=== PATIENT | female | born 1950 | race Caucasian/White ===

== ENCOUNTER 2018-09-17 09:17 | Inpatient (IN) | payer MEDICARE ==
[~2018-09-17] VITALS: Ht 154.9 cm; Wt 57.6 kg
[~2018-09-17 09:17] MED LIST: ACID1TAB7 PO; GABA-826 PO; INSU100V8 SQ-INSULIN; LEVO750T26 PO; MAGN400T26 PO; MEGE400O2 PO; METF-162; METO10TA82 PO; METO25TA35 PO; METR500T PO; MORP15TA PO; MORP30TA81 PO; NICO-486 TD; OMEP-110 PO; OMEP10CA4 PO; ONDA4TAB13 SL; PANT40TA5 PO; POLY17PO5 PO; SUCR1ORA11 PO
[2018-09-17] MEDS ORDERED: SODIUM CHLORIDE FLUSH 10ML SYR IVF ONE (09:30)
--- NOTE | 2018-09-17 09:30 | NUR ---
Pt reports 3 wks of diffuse low ABD pain, 2 days of constipation & gen. malaise. Per granddaughter whom she lives with, pt is confused. Pt is currently A&O x4, 810 pain, febrile. Has been seen by ERP & medical workup ordered.
[2018-09-17 09:59] LABS: MEAN CORPUSCULAR HEMOGLOBIN 23.3 pg (27.0-34.8); MEAN CORPUSCULAR HGB CONC 30.7 g/dL (32.4-35.8); MEAN CORPUSCULAR VOLUME 75.9 fL (80-100); PLATELET COUNT 510 x10^3/uL (130-400); RED BLOOD COUNT 5.19 x10^6/uL (3.82-5.3); RED CELL DISTRIBUTION WIDTH 21.1 % (9.6-15.2)
[2018-09-17 10:08] LABS: ALANINE AMINOTRANSFERASE 12 U/L (12-78); ALBUMIN 2.6 g/dL (3.4-5.0); ANION GAP 12 mmol/L (5-15); CALCIUM 8.4 mg/dL (8.5-10.1); CHLORIDE 95 mmol/L (98-107); CREATININE 0.74 mg/dL (0.55-1.02)
[2018-09-17 10:10] LABS: ALKALINE PHOSPHATASE 146 U/L (45-117); BILIRUBIN,TOTAL 0.7 mg/dL (0.2-1.0); TOTAL PROTEIN 6.5 g/dL (6.4-8.2)
--- NOTE | 2018-09-17 10:20 | NUR ---
Labs drawn & sent. Cath UA obtained & sent. Multiple IV attempts w/out success.
[2018-09-17 10:27] LABS: BASOPHILS # (AUTO) 0.05 x10^3/uL (0-0.1); BASOPHILS % (AUTO) 1 % (0-1); EOSINOPHILS # (AUTO) 0.06 x10^3/uL (0-0.4); EOSINOPHILS % (AUTO) 1 % (1-7); LYMPHOCYTES # (AUTO) 1.04 x10^3/uL (1-3.4); LYMPHOCYTES % (AUTO) 15 % (22-44); MD SCAN; MONOCYTES % (AUTO) 3 % (2-9); NEUTROPHILS # (AUTO) 5.74 x10^3/uL (1.8-6.8); NEUTROPHILS % (AUTO) 81 % (42-75)
--- NOTE | 2018-09-17 10:52 | NUR ---
delay in CT due to inability to gain IV access after 7 attempts. US IV placed & CT called to inform that pt is ready.
[2018-09-17] MEDS ORDERED: ONDANSETRON 2MG/ML, 2ML IVPush ONE (11:00)
[2018-09-17] MEDS ORDERED: MORPHINE SULFATE 4 MG/ML, 1ML IVPush PRN (11:00)
[2018-09-17 11:07] LABS: MICROSCOPIC INDICATED
[2018-09-17 11:11] LABS: CULTURE INDICATED? YES
[2018-09-17] MEDS ORDERED: MORPHINE SULFATE 4 MG/ML, 1ML ONE (11:11)
[2018-09-17] MEDS ORDERED: ONDANSETRON 2MG/ML, 2ML ONE (11:11)
[2018-09-17] MEDS ORDERED: OMNIPAQUE 350 MG/ML, 100ML BOTTLE ONE (11:19)
--- NOTE | 2018-09-17 11:27 | NUR ---
Back from CT. Medicated for 8/10 ABD pain. Placed on continuous pulse oximetry.
[2018-09-17] MEDS ORDERED: METRONIDAZOLE PMX 500MG/100ML 100 ML IV ONE (12:00)
[2018-09-17] MEDS ORDERED: CEFOTETAN PMX 1GM/50ML 50 ML IV ONE (12:00)
[2018-09-17] MEDS ORDERED: CEFOTETAN PMX 1GM/50ML 50 ML ONE (12:12)
[2018-09-17] MEDS ORDERED: METRONIDAZOLE PMX 500MG/100ML 100 ML ONE (12:12)
--- NOTE | 2018-09-17 12:18 | NUR ---
Spoke w/ pharmacist, ok to give abx w/ pcn/sulfa allergies. 1st abx started.
[2018-09-17 13:26] VITALS: BP 126/49
[2018-09-17] MEDS ORDERED: CEFTRIAXONE PMX 1GM/50ML 50 ML IV SCH ×2 (14:00→15:03)
[2018-09-17] MEDS ORDERED: ACETAMINOPHEN 325 MG TABLET PO PRN ×2 (14:00→15:06)
[2018-09-17] MEDS ORDERED: ONDANSETRON ODT 4 MG PO PRN (15:30)
[2018-09-17] MEDS ORDERED: OXYcodone 5 MG/5 ML ORAL.SOL UDC ONE (15:46)
[2018-09-17] MEDS ORDERED: OXYcodone 5 MG/5 ML ORAL.SOL UDC PO ONE (16:00)
[2018-09-17] MEDS: NS + 20MEQ KCL 1,000 ML IV SCH (16:07)
[2018-09-17] MEDS: HEPARIN 5,000 UNITS/ML, 1ML SQ SCH ×2 (16:09→21:38)
[2018-09-17] MEDS: PANTOPRAZOLE 40 MG IV IVPush SCH (16:09)
[2018-09-17] MEDS: LACTOBACILLUS CHEW TABLET PO SCH ×2 (16:22→21:35)
[2018-09-17] MEDS: SUCRALFATE 1 GM TABLET PO SCH ×2 (16:24→21:35)
[2018-09-17] MEDS ORDERED: OMEPRAZOLE 20 MG CAPSULE.DR PO SCH (16:30)
[2018-09-17] MEDS: INSULIN LISPRO 100 UNITS/ML, PEN SQ-INSULIN SCH ×2 (17:26→21:37)
[2018-09-17] MEDS: CEFTRIAXONE PMX 1GM/50ML 50 ML IV SCH (17:27)
[2018-09-17] MEDS ORDERED: ONDANSETRON 2MG/ML, 2ML IVPush PRN (17:30)
[2018-09-17] MEDS ORDERED: OXYC5TAB2 PO (18:05)
[2018-09-17] MEDS ORDERED: METO5TAB2 PO (18:05)
[2018-09-17] MEDS ORDERED: APIX5TAB PO (18:05)
[2018-09-17] MEDS ORDERED: METO10TA82 PO (18:05)
[2018-09-17] MEDS ORDERED: INSU100I34 IM (18:05)
[2018-09-17] MEDS: METRONIDAZOLE PMX 500MG/100ML 100 ML IV SCH (18:23)
[2018-09-17 18:33] VITALS: BP 116/57
[2018-09-17] MEDS ORDERED: INSULIN GLARGINE 100 UNITS/ML, PEN SQ-INSULIN SCH (21:00)
[2018-09-18] MEDS: METRONIDAZOLE PMX 500MG/100ML 100 ML IV SCH ×4 (00:31→18:23)
[2018-09-18 01:34] VITALS: BP 133/71
[2018-09-18] MEDS: PANTOPRAZOLE 40 MG IV IVPush SCH ×2 (02:49→16:31)
[2018-09-18] MEDS: NS + 20MEQ KCL 1,000 ML IV SCH ×3 (04:15→16:55)
[2018-09-18] MEDS: HEPARIN 5,000 UNITS/ML, 1ML SQ SCH (06:26)
[2018-09-18] MEDS: SUCRALFATE 1 GM TABLET PO SCH ×4 (06:27→22:36)
[2018-09-18 06:29] LABS: ALBUMIN 2.2 g/dL (3.4-5.0); ANION GAP 10 mmol/L (5-15); CALCIUM 7.8 mg/dL (8.5-10.1); CHLORIDE 102 mmol/L (98-107)
[2018-09-18 06:32] LABS: ALANINE AMINOTRANSFERASE 7 U/L (12-78); ALKALINE PHOSPHATASE 127 U/L (45-117); BILIRUBIN,TOTAL 0.4 mg/dL (0.2-1.0); TOTAL PROTEIN 5.4 g/dL (6.4-8.2)
[2018-09-18 06:33] LABS: BASOPHILS # (AUTO) 0.06 x10^3/uL (0-0.1); BASOPHILS % (AUTO) 1 % (0-1); EOSINOPHILS # (AUTO) 0.13 x10^3/uL (0-0.4); EOSINOPHILS % (AUTO) 2 % (1-7); LYMPHOCYTES # (AUTO) 1.17 x10^3/uL (1-3.4); LYMPHOCYTES % (AUTO) 15 % (22-44); MD NO; MEAN CORPUSCULAR HEMOGLOBIN 23.8 pg (27.0-34.8); MEAN CORPUSCULAR HGB CONC 31.2 g/dL (32.4-35.8); MEAN CORPUSCULAR VOLUME 76.2 fL (80-100); MEAN PLATELET VOLUME 8.4 fL (7.4-10.4); MONOCYTES # (AUTO) 0.32 x10^3/uL (0.2-0.8); MONOCYTES % (AUTO) 4 % (2-9); NEUTROPHILS # (AUTO) 5.99 x10^3/uL (1.8-6.8); NEUTROPHILS % (AUTO) 78 % (42-75); PLATELET COUNT 482 x10^3/uL (130-400); RED BLOOD COUNT 4.36 x10^6/uL (3.82-5.3); RED CELL DISTRIBUTION WIDTH 20.7 % (9.6-15.2)
[2018-09-18] MEDS: INSULIN LISPRO 100 UNITS/ML, PEN SQ-INSULIN SCH ×4 (07:11→22:36)
[2018-09-18 07:32] VITALS: BP 105/50
[2018-09-18] MEDS: INSULIN GLARGINE 100 UNITS/ML, PEN SQ-INSULIN SCH ×2 (08:29→22:51)
[2018-09-18] MEDS: LACTOBACILLUS CHEW TABLET PO SCH ×3 (08:29→22:36)
[2018-09-18] MEDS ORDERED: OXYcodone 5 MG/5 ML ORAL.SOL UDC ONE (09:33)
[2018-09-18] MEDS: OXYcodone 5 MG/5 ML ORAL.SOL UDC PO PRN ×2 (09:36→16:56)
[2018-09-18] MEDS: APIXABAN 5 MG TABLET PO SCH ×2 (11:35→22:36)
[2018-09-18] MEDS: METOCLOPRAMIDE 10MG TABLET PO SCH ×3 (11:35→22:36)
[2018-09-18 12:31] VITALS: BP 124/62
[2018-09-18] MEDS ORDERED: POTASSIUM CHLORIDE 20 MEQ TAB.ER.PRT PO ONE (13:30)
[2018-09-18] MEDS: CEFTRIAXONE PMX 1GM/50ML 50 ML IV SCH (16:54)
[2018-09-18] MEDS: METOPROLOL TARTRATE 25 MG TABLET PO SCH (18:00)
[2018-09-18 18:47] VITALS: BP 104/52
[2018-09-19] MEDS: METRONIDAZOLE PMX 500MG/100ML 100 ML IV SCH ×4 (00:29→18:14)
[2018-09-19 02:15] VITALS: BP 97/51
[2018-09-19] MEDS: PANTOPRAZOLE 40 MG IV IVPush SCH ×2 (03:12→15:00)
[2018-09-19 03:26] LABS: CLOSTRIDIUM DIFFICILE ANTIGEN NEGATIVE; CLOSTRIDIUM DIFFICILE TOXIN NEGATIVE (Negative)
[2018-09-19 05:33] LABS: MEAN CORPUSCULAR HEMOGLOBIN 24.1 pg (27.0-34.8); MEAN CORPUSCULAR HGB CONC 31.9 g/dL (32.4-35.8); MEAN CORPUSCULAR VOLUME 75.6 fL (80-100); MEAN PLATELET VOLUME 8.5 fL (7.4-10.4); PLATELET COUNT 493 x10^3/uL (130-400); RED BLOOD COUNT 4.35 x10^6/uL (3.82-5.3); RED CELL DISTRIBUTION WIDTH 21.1 % (9.6-15.2)
[2018-09-19 05:43] LABS: ALBUMIN 2.2 g/dL (3.4-5.0); ANION GAP 5 mmol/L (5-15); CALCIUM 7.7 mg/dL (8.5-10.1); CHLORIDE 107 mmol/L (98-107)
[2018-09-19 05:46] LABS: ALANINE AMINOTRANSFERASE 9 U/L (12-78); ALKALINE PHOSPHATASE 115 U/L (45-117); BILIRUBIN,TOTAL 0.4 mg/dL (0.2-1.0); CREATININE 0.59 mg/dL (0.55-1.02); TOTAL PROTEIN 5.5 g/dL (6.4-8.2)
[2018-09-19 06:20] LABS: MD YES
[2018-09-19] MEDS: NS + 20MEQ KCL 1,000 ML IV SCH ×2 (06:21→16:00)
[2018-09-19] MEDS: METOCLOPRAMIDE 10MG TABLET PO SCH ×4 (06:22→20:23)
[2018-09-19] MEDS: METOPROLOL TARTRATE 25 MG TABLET PO SCH ×2 (06:22→18:00)
[2018-09-19 06:23] LABS: EOS#(MANUAL) 0.19 x10^3/uL (0.0-0.4); EOS% (MANUAL) 4 % (1-7); LYMPH#(MANUAL) 1.69 x10^3/uL (1-3.4); LYMPHS% (MANUAL) 36 % (22-44); MONOS#(MANUAL) 0.33 x10^3/uL (0.3-2.7); MONOS% (MANUAL) 7 % (2-9); SEG#(MANUAL) 2.49 x10^3/uL (1.8-6.8); SEGS% (MANUAL) 53 % (42-75)
[2018-09-19 06:24] LABS: ANISOCYTOSIS 2+; ECHINOCYTES 1+; HYPOCHROMIA 1+; MICROCYTOSIS 1+; OVALOCYTES 1+
[2018-09-19 06:26] VITALS: BP 113/61
[2018-09-19 06:26] LABS: <PLATELET ESTIMATE> INCREASED; <PLT MORPHOLOGY> NORMAL PLT MORPH; ACANTHOCYTES 1+
[2018-09-19] MEDS: SUCRALFATE 1 GM TABLET PO SCH ×4 (06:33→20:22)
[2018-09-19 06:55] VITALS: BP 134/79
[2018-09-19] MEDS: INSULIN LISPRO 100 UNITS/ML, PEN SQ-INSULIN SCH ×4 (07:43→20:24)
[2018-09-19] MEDS: OXYcodone 5 MG/5 ML ORAL.SOL UDC PO PRN ×2 (07:43→18:12)
[2018-09-19] MEDS: POTASSIUM CHLORIDE 20 MEQ TAB.ER.PRT PO SCH ×2 (07:43→16:39)
[2018-09-19] MEDS: IRON SUCROSE COMPLEX 100MG/5ML IV SCH (09:00)
[2018-09-19] MEDS: LACTOBACILLUS CHEW TABLET PO SCH ×3 (09:40→20:22)
[2018-09-19] MEDS: INSULIN GLARGINE 100 UNITS/ML, PEN SQ-INSULIN SCH ×2 (09:40→21:03)
[2018-09-19] MEDS: APIXABAN 5 MG TABLET PO SCH ×2 (09:40→20:23)
[2018-09-19 12:16] VITALS: BP 143/93
[2018-09-19] MEDS: ONDANSETRON ODT 4 MG PO PRN ×2 (13:59→18:12)
[2018-09-19] MEDS: CEFTRIAXONE PMX 1GM/50ML 50 ML IV SCH (15:30)
[2018-09-19] MEDS ORDERED: PROMETHAZINE 12.5 MG SUPP PR PRN (18:00)
[2018-09-19 18:10] VITALS: BP 131/72
[2018-09-19 20:00] VITALS: BP 152/75
[2018-09-20] MEDS: METRONIDAZOLE PMX 500MG/100ML 100 ML IV SCH ×4 (00:01→19:29)
[2018-09-20 01:06] VITALS: BP 138/77
[2018-09-20] MEDS: NS + 20MEQ KCL 1,000 ML IV SCH ×2 (02:00→12:30)
[2018-09-20] MEDS: PANTOPRAZOLE 40 MG IV IVPush SCH ×2 (03:39→15:00)
[2018-09-20] MEDS: METOCLOPRAMIDE 10MG TABLET PO SCH ×4 (06:10→22:09)
[2018-09-20] MEDS: METOPROLOL TARTRATE 25 MG TABLET PO SCH ×2 (06:10→16:48)
[2018-09-20] MEDS: SUCRALFATE 1 GM TABLET PO SCH ×4 (06:10→22:09)
[2018-09-20] MEDS: INSULIN LISPRO 100 UNITS/ML, PEN SQ-INSULIN SCH ×4 (06:11→22:10)
[2018-09-20 06:19] VITALS: BP 170/81
[2018-09-20 07:19] VITALS: BP 155/83
[2018-09-20] MEDS: POTASSIUM CHLORIDE 20 MEQ TAB.ER.PRT PO SCH ×2 (08:00→16:52)
[2018-09-20] MEDS: IRON SUCROSE COMPLEX 100MG/5ML IV SCH (08:28)
[2018-09-20] MEDS: LACTOBACILLUS CHEW TABLET PO SCH ×3 (08:29→22:08)
[2018-09-20] MEDS: INSULIN GLARGINE 100 UNITS/ML, PEN SQ-INSULIN SCH ×2 (08:29→22:10)
[2018-09-20] MEDS: APIXABAN 5 MG TABLET PO SCH ×2 (08:29→22:09)
[2018-09-20] MEDS: OXYcodone 5 MG/5 ML ORAL.SOL UDC PO PRN (08:30)
[2018-09-20] MEDS ORDERED: CEFD300C37 PO (13:16)
[2018-09-20] MEDS ORDERED: METR500T PO (13:16)
[2018-09-20] MEDS ORDERED: FERR324T5 PO (13:16)
[2018-09-20] MEDS ORDERED: INSU100I13 SQ-INSULIN ×2 (13:16)
[2018-09-20] MEDS ORDERED: ONDA4TAB13 SL (13:16)
[2018-09-20 13:58] VITALS: BP 156/76
[2018-09-20] MEDS: CEFTRIAXONE PMX 1GM/50ML 50 ML IV SCH (15:30)
[2018-09-20 19:31] VITALS: BP 158/88
[2018-09-21 01:37] VITALS: BP 138/91
[2018-09-21] MEDS: METRONIDAZOLE PMX 500MG/100ML 100 ML IV SCH ×3 (03:34→13:55)
[2018-09-21] MEDS: PANTOPRAZOLE 40 MG IV IVPush SCH ×2 (03:34→14:35)
[2018-09-21] MEDS: OXYcodone 5 MG/5 ML ORAL.SOL UDC PO PRN (05:24)
[2018-09-21] MEDS: NS + 20MEQ KCL 1,000 ML IV SCH (05:30)
[2018-09-21] MEDS: INSULIN LISPRO 100 UNITS/ML, PEN SQ-INSULIN SCH ×3 (06:28→16:11)
[2018-09-21] MEDS: SUCRALFATE 1 GM TABLET PO SCH ×3 (06:34→15:26)
[2018-09-21] MEDS: METOCLOPRAMIDE 10MG TABLET PO SCH ×3 (06:34→15:27)
[2018-09-21 07:52] VITALS: BP 132/75
[2018-09-21] MEDS: POTASSIUM CHLORIDE 20 MEQ TAB.ER.PRT PO SCH ×2 (07:57→16:12)
[2018-09-21] MEDS ORDERED: INSULIN GLARGINE 100 UNITS/ML, PEN SQ-INSULIN SCH (09:00)
[2018-09-21] MEDS ORDERED: NICOTINE 7 MG/24 HR PATCH.TD24 TD SCH (09:00)
[2018-09-21] MEDS: IRON SUCROSE COMPLEX 100MG/5ML IV SCH (09:00)
[2018-09-21] MEDS: APIXABAN 5 MG TABLET PO SCH (09:15)
[2018-09-21] MEDS: LACTOBACILLUS CHEW TABLET PO SCH ×2 (09:16→15:27)
[2018-09-21] MEDS: METOPROLOL TARTRATE 25 MG TABLET PO SCH (09:20)
[2018-09-21 12:40] VITALS: BP 147/82
[2018-09-21] MEDS ORDERED: INSU100V8 SQ (14:54)
[2018-09-21] MEDS ORDERED: metroNIDAZOLE 500 MG TABLET PO SCH (15:00)
[2018-09-21 16:23] VITALS: BP 154/91
[2018-09-21] MEDS ORDERED: CEFDINIR 300 MG CAPSULE PO SCH (21:00)
== END 2018-09-21 17:05 | disposition home or self-care (01) | DRG 371 ==
LOC: ED 10:35 → EDIP 11:47 → 4NOR 13:21 → 3NW 09-18 11:53 → 4NOR 09-18 11:53
PROVIDERS: ADMIT Internal Medicine; ATTEND Internal Medicine
DX: A04.9 Bacterial intestinal infection, unspecified (principal); E43 Unspecified severe protein-calorie malnutrition; E87.1 Hypo-osmolality and hyponatremia; D68.69 Other thrombophilia; Z88.0 Allergy status to penicillin; Z88.2 Allergy status to sulfonamides; Z88.8 Allergy status to other drugs, medicaments and biological substances; D50.9 Iron deficiency anemia, unspecified; E11.43 Type 2 diabetes mellitus with diabetic autonomic (poly)neuropathy; E11.65 Type 2 diabetes mellitus with hyperglycemia; E87.6 Hypokalemia; F17.210 Nicotine dependence, cigarettes, uncomplicated; G89.29 Other chronic pain; I25.2 Old myocardial infarction; I48.2 Chronic atrial fibrillation; K21.9 Gastro-esophageal reflux disease without esophagitis; K29.70 Gastritis, unspecified, without bleeding; Z79.01 Long term (current) use of anticoagulants; K31.84 Gastroparesis; Z79.4 Long term (current) use of insulin; Z79.891 Long term (current) use of opiate analgesic; Z87.11 Personal history of peptic ulcer disease; Z90.49 Acquired absence of other specified parts of digestive tract; Z98.84 Bariatric surgery status
CPT/HCPCS: 36415; 74177; 80053; 81001; 82728; 82962; 83036; 83540; 83550; 83605; 83690; 83735; 84466; 85025; 87086; 87324; 89055; 96374; 96375; 99285; G0378; J0696; J1644; J1756; J2405; J3480; Q0162; Q9967; C9113; J1815; J3490